=== PATIENT | female | born 1985 | race Caucasian/White ===

== ENCOUNTER 2017-09-10 15:30 | Inpatient (IN) | payer OTHER ==
[2017-09-10] MEDS ORDERED: MISOPROSTOL 200 MCG TAB PO PRN (19:18)
[2017-09-10] MEDS ORDERED: LIDOCAINE 1% 300 MG/30 ML SDV SC PRN (19:18)
[2017-09-10] MEDS ORDERED: IBUPROFEN 600 MG TAB PO PRN (19:18)
[2017-09-10] MEDS ORDERED: LR 1,000 ML IV PRN (19:18)
[2017-09-10] MEDS ORDERED: TERBUTALINE SULFATE 1 MG/ML VIAL IV PRN (19:18)
[2017-09-10] MEDS ORDERED: AMMONIA AROMATIC 1 EACH AMP IH PRN (19:18)
[2017-09-10] MEDS ORDERED: OLIVE OIL 118 ML BTL MISC PRN (19:18)
[2017-09-10] MEDS ORDERED: EPSOM SALT 454 GM TP PRN (19:18)
[2017-09-10 19:46] LABS: PLATELET COUNT 181 10^3/uL (150-400)
--- NOTE | 2017-09-10 19:47 | PDGENHP ---
History and Physical History and Physical: CARE: [facility] HPI: Patient is a 32 yo G 1 P 0 at 41 weeks ega who presented to L&D today for an NST and CYRUS. NST was reactive, CYURS was 2.3. Baby has been active, denies LOF of VB or regular contractions. Due to gestational age and low CYRUS, will admit for IOL for oligo and postdates. EDC: 09/03/2017 which is based on LMP: 11/27/16 which is known and consistent with Ultrasound at 7 weeks. Her is complicated by: -h/o migraines with aura -Rubella non-immune Review of Systems: Constitutional: Denies any fever, chills, or fatigue HEENT: denies any visual changes, difficulty swallowing, hearing loss Cardiovascular: Denies any chest pain, palpitations, leg swelling Respiratory: denies any cough, wheezing, or shortness of breathe GI: Denies any nausea, vomiting, diarrhea, constipation : denies any dysuria, urgency, frequency, vaginal bleeding Musculoskeletal: denies any muscle or bone pain Skin: denies any rashes Neuro: denies any headache, seizures, lightheadedness, dizziness, or loss of consciousness Psychiatric: denies any depression, anxiety, or SI/HI thoughts HISTORY: Previous OB history: none Past medical history: h/o migraines with aura, Rubella non - immune Past surgical history: Laparotomy with RSO at age 12 (lg cyst with torsion) Medications: PNV, iron Allergies (list reaction): PCN, sulfa (rash), trimethoprim LABS: Rh: O pos ABS: Neg Rubella: Non-immune HbsAg: NR HIV: NR VDRL: NR 1hr: 76 GC: Neg Chlamydia: Neg Pap: Normal GBS: neg Genetic screening: Innatal-neg, AFP-neg BMI: (prepreg) 21 PHYSICAL EXAM: Constitutional: WN, A&Ox3 HEENT: normocephalic atraumatic, supple Heart: RRR, no murmur Chest: CTA-B Abdomen: Soft, nontender, gravid SVE: 1/50/-2 Extremities: tr edema, negative marci's sign Neuro: grossly normal Psych: normal affect assessment: Reassuring FHTs, baseline 140 +accels, no decels, moderate variability Contractions: toco : irreg, mild Assessment: 1) 32 yo G 1 P 0 with IUP@ 41 weeks ega 2) IOL for postdates/oligo 3) GBS neg 4) Cat 1 FHR tracing 5) Rubella non-immune Plan: 1) Admit to L&D 2) Will place rivera bulb 3) Low dose pitocin overnight for cervical ripening 4) Induction in AM 5) Continuous monitoring 6) Anticipate
[2017-09-10] MEDS ORDERED: LR 500 ML IV PRN (20:02)
[2017-09-10] MEDS ORDERED: ZOLPIDEM TARTRATE 5 MG TAB PO PRN (20:03)
[2017-09-10] MEDS ORDERED: OXYTOCIN/RINGERS LACTATE 500 ML IV SCH (20:30)
[2017-09-10] MEDS ORDERED: hydrOXYzine HCL 50 MG TAB PO PRN (20:38)
[2017-09-11] MEDS ORDERED: LR 500 ML IV PRN (07:04)
[2017-09-11] MEDS ORDERED: OXYTOCIN/RINGERS LACTATE 500 ML IV SCH (07:30)
[2017-09-11] MEDS ORDERED: LIDOCAINE 1% 300 MG/30 ML SDV ONE (07:48)
[2017-09-11] MEDS ORDERED: OLIVE OIL 118 ML BTL ONE (07:49)
[2017-09-11] MEDS ORDERED: TERBUTALINE SULFATE 1 MG/ML VIAL ONE (07:49)
[2017-09-11] MEDS ORDERED: OXYTOCIN 10 UNIT/ML VIAL ONE (07:49)
[2017-09-11] MEDS ORDERED: MISOPROSTOL 200 MCG TAB ONE (07:49)
--- NOTE | 2017-09-11 12:33 | OBPROG ---
Labor Progress Note Assessment/Plan: Assessment: 32 yo @ 41 1/7 weeks for IOL secondary to oligo and postdates Plan: Pitocin was up to 18 mu/min and decreased to 10 mu/min Pt was examined, rivera bulb noted to be in vagina and was deflated and removed SVE 2-3/50/-3, intact Pt is in a lot of pain with ctx's and will get in the tub, if not tolerable requests an epidural FHTs reassuring, Cat I tracing Cont current management 09/11/17 12:33 Subjective/Intrapartum Course: 09/11/17 12:34 Pt is sitting in the chair and having a lot of pain with the ctx's, she wants to get in the tub and if pain is not any better she desires an epidural. Objective: 09/10/17 19:25 Patient ABO/Rh O POSITIVE 09/10/17 19:25 - SVE Dilation (cm): 2 (2-3) Effacement (%): 50 Station: -2 Membranes: Intact - Contraction Pattern Assessment Current Contraction Pattern: Regular (every 2-3 min) - FHR Assessment Dudley FHR (bpm): 140 FHR Pattern Variability: Moderate FHR Category: 1 - AP Antepartum Course: 09/11/17 12:36 IUP@ 41 weeks who came in for NST and CYRUS check; CYRUS was 2.3; NST reactive; IOL for oligo. GBS negative 09/11/17 12:36 Oxytocin Orders Assessment - Pre-Induction/Augmentation Assessment Indication: Oligo; unfavorble cervix Presentation: Vertex Gestational Age: 41 week(s) and 0 day(s) Gestational Age Determined By: Last Menstral Period (c/w u/s in first trimester) Estimated Weight: 2501-3400g Membrane Status: Intact Current Contraction Pattern: Regular - Heart Rate Pattern Dudley FHR Baseline (bpm): 140 FHR Category: 1 FHR Pattern Variability: Moderate FHR Accelerations: Present - Nava's Score Dilation: 1-2cm (2-3) Effacement: 40-50 (50) Station: -2 Cervix: Soft Cervix Position: Posterior Nava Score Total: 5 - Induction/Augmentation Consent Risks/Benefits of Procedure Reviewed/Pt Agrees to Proceed: Yes ICD10 Worksheet Patient Problems: Problems Problem Status Onset Oligohydramnios Acute Post-dates Acute - ICD10 Problem Qualifiers (1) Oligohydramnios (2) Post-dates
[2017-09-11] MEDS ORDERED: PHENYLEPHRINE HCL 100 MCG/ML SYR ONE (12:51)
[2017-09-11] MEDS ORDERED: BUPIVACAINE 0.25% 30 ML SDV ONE (12:51)
[2017-09-11] MEDS ORDERED: fentaNYL 100 MCG/2 ML INJ ONE (12:51)
[2017-09-11] MEDS ORDERED: PHENYLEPHRINE HCL 100 MCG/ML SYR IVP PRN (13:26)
--- NOTE | 2017-09-11 13:26 | PDANEPAE ---
ANE History of Present Illness In labor, for VAHE ANE Past Medical History - Cardiovascular History Hx Hypertension: No Hx Arrhythmias: No Hx Chest Pain: No Hx Coronary Artery / Peripheral Vascular Disease: No Hx CHF / Valvular Disease: No Hx Palpitations: No - Pulmonary History Hx COPD: No Hx Asthma/Reactive Airway Disease: No Hx Recent Upper Respiratory Infection: No Hx Oxygen in Use at Home: No Hx Sleep Apnea: No Pulmonary History Comment: RESOLVING URI - Neurologic History Hx Cerebrovascular Accident: No Hx Seizures: No Hx Dementia: No - Endocrine History Hx Diabetes: No Endocrine History Comment: LOW T-3 LEVEL LOW TAKES SUPPLEMENT - Renal History Hx Renal Disorders: No - Liver History Hx Hepatic Disorders: No - Neurological & Psychiatric Hx Hx Neurological and Psychiatric Disorders: No - Cancer History Hx Cancer: No - Congenital Disorder History Hx Congenital Disorders: No - GI History GERD: no Hx Gastrointestinal Disorders: No - Other Health History Other Health History: NEG - Chronic Pain History Chronic Pain: Yes (LT FOOT) - Surgical History Prior Surgeries: L FOOT SURG. RT S&O 1997, GOLDIE BAUTISTA Review of Systems Review of Systems: - Exercise capacity METS (RN): 4 METS ANE Patient History - Allergies Allergies/Adverse Reactions: Penicillins Allergy (Verified 06/04/15 13:31) Rash sulfamethoxazole [From Septra] Allergy (Verified 06/04/15 13:31) Rash trimethoprim [From Septra] Allergy (Verified 06/04/15 13:30) Rash - Home Medications Home Medications: Herbals/Supplements -Info Only 01/12/16 [Last Taken 01/21/16] Ibuprofen 01/12/16 [Last Taken 01/21/16] Norethindrone 01/12/16 [Last Taken 01/21/16] - Anes Hx Anes Hx: no prior problems - Smoking Hx Smoking Status: Never smoked - Family Anes Hx Family Anes Hx: none ANE Labs/Vital Signs - Labs Result Diagrams: 09/10/17 19:25 - Vital Signs Height: 165.1 cm Weight: 67.132 kg ANE Physical Exam - Airway Neck exam: FROM Mallampati Score: Class 1 Mouth exam: normal dental/mouth exam - Pulmonary Pulmonary: no respiratory distress - Cardiovascular Cardiovascular: regular rate and rhythym - ASA Status ASA Status: II, E ANE Anesthesia Plan Anesthesia Plan: epidural (For labor)
[2017-09-11] MEDS ORDERED: fentaNYL 200 MCG, BUPIVACAINE 0.5% 20 ML in NS 100 ML EP SCH (13:30)
[2017-09-11] MEDS ORDERED: fentaNYL 2MCG/ML/BUP 0.1% RTU 100 ML EP SCH (13:30)
--- NOTE | 2017-09-11 15:04 | PREANESOB ---
Obstetric Pre-Anesthesia Info - General Info Proposed Procedure: Labor Epidural : 1 Para: 0 TJ: 09/03/17 Gestational Age: 41 week(s) and 0 day(s) - Info Status: Postmature Monitors: External FHR Pattern: Reassuring - Labor Status Cervical Dilation per last OB SVE: 2 (2-3) Station per last OB SVE: -2 Pitocin: In Use PIH: No Magnesium Sulfate in Use: No Indications for Labor Analgesia: Pain Control Labor Epidural: Yes Anesthesia Allergies/Adverse Reactions: Allergy/AdvReac Type Severity Reaction Status Date / Time Penicillins Allergy Rash Verified 06/04/15 13:31 sulfamethoxazole Allergy Rash Verified 06/04/15 13:31 [From ] trimethoprim [From ] Allergy Rash Verified 06/04/15 13:30 Home Medications: Medication Instructions Recorded Herbals/Supplements -Info Only 01/12/16 Ibuprofen 01/12/16 Norethindrone 01/12/16 Visit Medications: Generic Name Dose Route Start Last Admin Trade Name Freq PRN Reason Stop Dose Admin Ammonia (Aromatic Spirit) 1 each 09/10/17 19:18 Ammonia Aromatic IH 09/20/17 19:17 ONCE PRN Fainting Hydroxyzine HCl 50 mg 09/10/17 20:38 Hydroxyzine Hcl PO 03/09/18 20:37 Q6HRS PRN Sleep/Insomnia Lactated Ringer's 1,000 mls @ 0 mls/hr 09/10/17 19:18 09/10/17 19:49 Lr IV 09/11/17 19:17 1,000 mls PRN PRN Administration SEE PROTOCOL CONDITIONS Protocol Per Protocol Lactated Ringer's 500 mls @ 500 mls/hr 09/10/17 20:02 Lr IV 09/11/17 20:02 PRN PRN Maternal Hypotension Oxytocin/Lactated Ringer's 500 mls @ 0 mls/hr 09/10/17 20:30 09/10/17 20:20 Pitocin 30 Units/Lr (Premix) IV 03/09/18 20:29 500 mls CONT TANYA Administration Protocol Per Protocol Lactated Ringer's 500 mls @ 500 mls/hr 09/11/17 07:04 Lr IV 09/12/17 07:05 PRN PRN Maternal Hypotension Oxytocin/Lactated Ringer's 500 mls @ 0 mls/hr 09/11/17 07:30 Pitocin 30 Units/Lr (Premix) IV 03/10/18 07:29 CONT [facility] Protocol Per Protocol Fentanyl 200 mcg/ Bupivacaine 100 mls @ 0 mls/hr 09/11/17 13:30 HCl 20 ml/ Sodium Chloride EP 09/21/17 13:29 CONT [facility] Protocol As Directed Ibuprofen 600 mg 09/10/17 19:18 Motrin PO ONCE PRN post , pain Lidocaine HCl 300 mg 09/10/17 19:18 Lidocaine Hcl 1% SC 03/09/18 19:17 ONCE PRN episiotomy Magnesium Sulfate 454 gm 09/10/17 19:18 Epsom Salt TP 03/09/18 19:17 Q1H PRN perineal discomfort Misoprostol 800 - 1,000 mcg 09/10/17 19:18 Cytotec PO 03/09/18 19:17 ONCE PRN Vaginal Atony/Bleeding Alvord Oil 118 ml 09/10/17 19:18 Sweet Oil MISC 03/09/18 19:17 ONCE PRN perineal massage Phenylephrine HCl 100 mcg 09/11/17 13:26 Neosynephrine IVP 03/10/18 13:25 .Q2M PRN Hypotension Terbutaline Sulfate 0.25 mg 09/10/17 19:18 Brethine IV 03/09/18 19:17 ONCE PRN Tachysystole Zolpidem Tartrate 5 mg 09/10/17 20:03 09/10/17 21:59 Ambien PO 03/09/18 20:02 5 mg HS PRN Administration Sleep/Insomnia Discontinued Medications Generic Name Dose Route Start Last Admin Trade Name Tommy PRN Reason Stop Dose Admin Bupivacaine HCl Confirm 09/11/17 12:51 Sensorcaine 0.25% Sdv Administered 09/11/17 12:52 Dose 30 ml .ROUTE .STK-MED ONE Fentanyl Confirm 09/11/17 12:51 Sublimaze Administered 09/11/17 12:52 Dose 100 mcg .ROUTE .STK-MED ONE Lidocaine HCl Confirm 09/11/17 07:48 Lidocaine Hcl 1% Administered 09/11/17 07:49 Dose 300 mg .ROUTE .STK-MED ONE Misoprostol Confirm 09/11/17 07:49 Cytotec Administered 09/11/17 07:50 Dose 1,000 mcg .ROUTE .STK-MED ONE Alvord Oil Confirm 09/11/17 07:49 Sweet Oil Administered 09/11/17 07:50 Dose 118 ml .ROUTE .STK-MED ONE Oxytocin Confirm 09/11/17 07:49 Pitocin Administered 09/11/17 07:50 Dose 40 unit .ROUTE .STK-MED ONE Phenylephrine HCl Confirm 09/11/17 12:51 Neosynephrine Administered 09/11/17 12:52 Dose 1,000 mcg .ROUTE .STK-MED ONE Terbutaline Sulfate Confirm 09/11/17 07:49 Brethine Administered 09/11/17 07:50 Dose 1 mg .ROUTE .STK-MED ONE - Vital Signs Height/Weight (Nursing): Height 165.1 cm Weight 67.132 kg Labs: 09/10/17 19:25 Patient ABO/Rh O POSITIVE 09/10/17 19:25
--- NOTE | 2017-09-11 16:25 | OBPROG ---
Labor Progress Note Assessment/Plan: Assessment: 32 yo @ 41 1/7 weeks for IOL secondary to oligo and postdates Plan: Pitocin at 10 mu/min s/p epidural, pt is comfortable SVE 5-6/100/0; AROM-very small amount of blood tinged fluid FHTs now Cat II tracing with intermittent variable decels since AROM resuscitation performed and strip reassuring Anticipate 09/11/17 16:22 Subjective/Intrapartum Course: 09/11/17 12:34 Pt is sitting in the chair and having a lot of pain with the ctx's, she wants to get in the tub and if pain is not any better she desires an epidural. 09/11/17 16:25 Pt is s/p epidural, comfortable with no complaints. Objective: 09/10/17 19:25 Patient ABO/Rh O POSITIVE 09/10/17 19:25 - SVE Dilation (cm): 5 (5-6) Effacement (%): 100 Station: 0 Membranes: AROM (very small amount) Amniotic Fluid Color: Bloody - Contraction Pattern Assessment Current Contraction Pattern: Regular (q 2-3 min) - FHR Assessment Dudley FHR (bpm): 140 FHR Pattern Variability: Moderate FHR Category: 2 (intermittent variable decels) - Procedures Non-surgical Procedures: Amniotomy - AP Antepartum Course: 09/11/17 12:36 IUP@ 41 weeks who came in for NST and CYRUS check; CYRUS was 2.3; NST reactive; IOL for oligo. GBS negative 09/11/17 12:36 - Physical Exam Estimated Weight: 2501-3400g Oxytocin Orders Assessment - Pre-Induction/Augmentation Assessment Presentation: Vertex Gestational Age: 41 week(s) and 0 day(s) Estimated Weight: 2501-3400g ICD10 Worksheet Patient Problems: Problems Problem Status Onset Oligohydramnios Acute Post-dates Acute - ICD10 Problem Qualifiers (1) Oligohydramnios (2) Post-dates
[2017-09-11] MEDS ORDERED: ONDANSETRON 4 MG/2 ML VIAL IVP PRN (21:05)
--- NOTE | 2017-09-12 00:24 | OBPROG ---
Labor Progress Note Assessment/Plan: Assessment: 32 yo @ 41 1/7 weeks for IOL secondary to oligo and postdates Plan: Pt feeling some pressure SVE-ant lip that was reduced, +2 station Will start pushing FHTs - Cat I tracing with intermittent early decels Anticipate 09/12/17 00:25 Subjective/Intrapartum Course: 09/11/17 12:34 Pt is sitting in the chair and having a lot of pain with the ctx's, she wants to get in the tub and if pain is not any better she desires an epidural. 09/11/17 16:25 Pt is s/p epidural, comfortable with no complaints. 09/12/17 00:24 Pt is starting to feel some pressure Objective: 09/10/17 19:25 Patient ABO/Rh O POSITIVE 09/10/17 19:25 - SVE Dilation (cm): 10 Effacement (%): 100 Station: +2 Membranes: AROM (very small amount) Amniotic Fluid Color: Bloody Dilation Complete Date: 09/12/17 Dilation Complete Time: 00:20 - Contraction Pattern Assessment Current Contraction Pattern: Regular (q 2-3 min) - FHR Assessment Dudley FHR (bpm): 160 FHR Pattern Variability: Moderate FHR Category: 1 (intermittent early decels) - Procedures Non-surgical Procedures: Amniotomy - AP Antepartum Course: 09/11/17 12:36 IUP@ 41 weeks who came in for NST and CYRUS check; CYRUS was 2.3; NST reactive; IOL for oligo. GBS negative 09/11/17 12:36 - Physical Exam Estimated Weight: 2501-3400g Oxytocin Orders Assessment - Pre-Induction/Augmentation Assessment Presentation: Vertex Gestational Age: 41 week(s) and 0 day(s) Estimated Weight: 2501-3400g ICD10 Worksheet Patient Problems: Problems Problem Status Onset Oligohydramnios Acute Post-dates Acute - ICD10 Problem Qualifiers (1) Oligohydramnios (2) Post-dates
[2017-09-12] MEDS ORDERED: SIMETHICONE 80 MG TAB CHEW PO PRN (02:40)
[2017-09-12] MEDS ORDERED: HYDROCORTISONE 0.5% CREAM TP PRN (02:40)
--- NOTE | 2017-09-12 02:46 | OBDEL ---
Info Type: Vaginal Presentation at Delivery: Vertex L&D Analgesia/Anesthesia Type: Epidural GBS+: No Intrapartum Medications: Generic Name Dose Route Start Last Admin Trade Name Freq PRN Reason Stop Dose Admin Oxytocin/Lactated Ringer's 500 mls @ 0 mls/hr 09/10/17 20:30 09/10/17 20:20 Pitocin 30 Units/Lr (Premix) IV 03/09/18 20:29 500 mls CONT TANYA Administration Protocol Per Protocol Fentanyl 200 mcg/ Bupivacaine 100 mls @ 0 mls/hr 09/11/17 13:30 09/11/17 21: 37 HCl 20 ml/ Sodium Chloride EP 09/21/17 13:29 100 mls CONT TANYA Administration Protocol As Directed Ondansetron HCl 4 mg 09/11/17 21:05 09/11/17 21:24 Zofran IVP 03/10/18 21:04 4 mg Q6HRS PRN Administration Nausea/Vomiting, Can't Take PO Zolpidem Tartrate 5 mg 09/10/17 20:03 09/10/17 21:59 Ambien PO 03/09/18 20:02 5 mg HS PRN Administration Sleep/Insomnia Discontinued Medications Generic Name Dose Route Start Last Admin Trade Name Freq PRN Reason Stop Dose Admin Lactated Ringer's 1,000 mls @ 0 mls/hr 09/10/17 19:18 09/10/17 19:49 Lr IV 09/11/17 19:17 1,000 mls PRN PRN Administration SEE PROTOCOL CONDITIONS Protocol Per Protocol Lactated Ringer's 500 mls @ 500 mls/hr 09/11/17 07:04 09/11/17 22:10 Lr IV 09/12/17 07:05 500 mls PRN PRN Administration Maternal Hypotension - Infant Care Provider Mail Sorter/CREW PERSON: Sofie Bowling - Hospital Course Intrapartum: 09/11/17 12:34 Pt is sitting in the chair and having a lot of pain with the ctx's, she wants to get in the tub and if pain is not any better she desires an epidural. 09/11/17 16:25 Pt is s/p epidural, comfortable with no complaints. 09/12/17 00:24 Pt is starting to feel some pressure Indications for Delivery: Oligohydramnios (IOL) Vaginal Delivery - Delivery Provider Delivery Physician/CNM: Nika Terry - Labor and Delivery Onset of Contractions Date: 09/11/17 Onset of Contractions Time: 13:11 Onset of Contractions Type: Induced Rupture of Membranes Date: 09/12/17 Rupture of Membranes Time: 16:15 Rupture of Membranes Type: Artificial Amniotic Fluid Color: Bloody Dilation Complete Date: 09/12/17 Dilation Complete Time: 00:20 Placenta Delivery Date: 09/12/17 Placenta Delivery Time: 02:05 Total Hours of Labor: 12 Non-surgical Procedures: Amniotomy Laceration: 2nd Degree, Other (Specify) (R vaginal wall laceration) Repair: 3-0, Vicryl Vaginal Sponge Count Correct: Yes Vaginal Needle Count Correct: Yes Vaginal Sweep Performed: Yes EBL: 350 cc Delivery Events: Other (Specify) (Terminal meconium noted) Delivery Comment: A viable female infant born at 0200 in [place], compound presentation over intact perineum. No nuchal cord. Terminal meconium noted. to maternal abdomen. Cord gases and cord blood was obtained. Placenta delivered spontaneously intact with 3-vc. Trailing membranes noted and removed with ring forcep. Inspection revealed 2nd degree perineal lac and R vaginal wall lac that was repaired with 3 -0 Vicryl x 2. FF below umbilicus, but some brisk bleeding noted. Pitocin given IM. Another sweep performed and more trailing membranes removed. Bleeding was then minimal. No complications. Cord Gases: Cord Gases Cord Blood PCO2 42.9 mmHg (37-60) 09/12/17 02:30 Cord Base Excess -12.0 mEq/L (-13.6--3.2) 09/12/17 02:30 Cord ABG pH 7.19 (7.10-7.37) 09/12/17 02:30 Cord VBG pH 7.22 (7.20-7.42) 09/12/17 02:30 - Medications Labor Augmentation/Induction Methods Used: Pitocin Labor Augmentation/Induction Indication: Post Dates, Other (Specify) ( Oligohydramnios) Operative Report - Delivery Cord Gases: Cord Gases Cord Blood PCO2 42.9 mmHg (37-60) 09/12/17 02:30 Cord Base Excess -12.0 mEq/L (-13.6--3.2) 09/12/17 02:30 Cord ABG pH 7.19 (7.10-7.37) 09/12/17 02:30 Cord VBG pH 7.22 (7.20-7.42) 09/12/17 02:30 [place] Data TJ: 09/03/17 Gestational Age: 41 week(s) and 2 day(s) Dudley Delivery Date: 09/12/17 Delivery Time: 02:00 Sex of Infant: Female Score (1 Min): 7 Score (5 Min): 8 ICD10 Worksheet Patient Problems: Problems Problem Status Onset Oligohydramnios Acute Post-dates Acute (spontaneous vaginal delivery) Acute - ICD10 Problem Qualifiers (1) Oligohydramnios (2) Post-dates (3) (spontaneous vaginal delivery)
[2017-09-12] MEDS: HYDROCODONE/APAP 5/325 TAB PO PRN ×2 (05:43→23:30)
--- NOTE | 2017-09-12 08:54 | POSTANESTH ---
Post Anesthetic Evaluation Cardiovascular Status: Normal, Stable Respiratory Status: Normal, Stable Level of Consciousness/Mental Status: Can Participate in Eval Pain Control: Adequate, Prn Tx Ordered Nausea/Vomiting Control: Adequate, Prn Tx Ordered Complications Possibly Related to Anesthesia: None Noted (Patient reports good labor pain control with VAHE. No residual weakness/numbness.)
[2017-09-12] MEDS: IBUPROFEN 600 MG TAB PO PRN ×3 (09:45→21:50)
[2017-09-12] MEDS: DOCUSATE SODIUM 100 MG CAP PO PRN ×2 (16:15→23:30)
--- NOTE | 2017-09-12 19:44 | OBPP ---
Progress Note Assessment/Plan: Assessment: 32 y/o PPD #1 s/p doing well Plan: support, routine PPC and likely d/c home tomorrow. 09/12/17 19:43 Subjective/ Course: 09/12/17 19:42 Pt is doing well today. She has min cramping and perineal pain controlled with Ibuprofen. She is ambulating and voiding without difficulty. Baby is doing well and breast feeding is going well. Objective: 09/10/17 19:25 Patient ABO/Rh O POSITIVE 09/10/17 19:25 Temp Pulse Resp BP Pulse Ox 35.9 C L 57 L 16 113/74 96 09/12/17 13:26 09/12/17 08:00 09/12/17 08:00 09/12/17 08:00 09/12/17 05:49 Uterine Position/Fundal Height: Umbilicus -2 Uterine Tone: Firm Physical Exam - Physical Exam General Appearance: WD/WN, alert, no apparent distress Neck: non-tender, full range of motion, supple Respiratory: chest non-tender, lungs clear, normal breath sounds Cardiac/Chest: regular rate, rhythm Abdomen: normal bowel sounds Extremities: swelling (no), Lisbeth's sign (neg)
[2017-09-13] MEDS: IBUPROFEN 600 MG TAB PO PRN ×2 (04:17→12:34)
[2017-09-13] MEDS: HYDROCODONE/APAP 5/325 TAB PO PRN (08:57)
--- NOTE | 2017-09-13 09:05 | OBGCSDC ---
General Delivery Information - General Info : 1 Para: 1 Abortions: 0 Type: Vaginal L&D Analgesia/Anesthesia Type: Epidural Admission Date: 09/10/17 Labs: Patient ABO/Rh O POSITIVE 09/10/17 19:25 Hct 36.9 % (38.0-47.0) L 09/10/17 19:25 - Hospital Course Antepartum: 09/11/17 12:36 IUP@ 41 weeks who came in for NST and CYRUS check; CYRUS was 2.3; NST reactive; IOL for oligo. GBS negative 09/11/17 12:36 Intrapartum: 09/11/17 12:34 Pt is sitting in the chair and having a lot of pain with the ctx's, she wants to get in the tub and if pain is not any better she desires an epidural. 09/11/17 16:25 Pt is s/p epidural, comfortable with no complaints. 09/12/17 00:24 Pt is starting to feel some pressure : 09/12/17 19:42 Pt is doing well today. She has min cramping and perineal pain controlled with Ibuprofen. She is ambulating and voiding without difficulty. Baby is doing well and breast feeding is going well. 09/13/17 09:04 S) Pt doing well, reports min pain and bleeding. she is ambulating and voiding without difficulty. She is . She desires discharge home today. O) VSS, afebrile constitutional: WNWF, A&Ox3 HEENT: normocephalic, atraumatic, supple Heart: RRR, No murmur Chest: CTA-B Abdomen: Soft, nontender Uterus: Firm at U-2 Lochia: Minimal rubra Perineum: Intact, healing well Extremities: Trace edema, and negative Lisbeth's sign Neuro: Grossly normal A) 32 year-old S/P PPD#1 P) Discharge home today Continue Pelvic rest x6wks Discussed danger signs (infection, preeclampsia, depression, heavy bleeding, etc) RTO in 2/4/6 weeks Vaginal - Delivery Provider Delivery Physician/CNM: Nika Terry - Diagnosis Labor: Induced Rupture of Membranes Type: Artificial Amniotic Fluid Color: Bloody Laceration: 2nd Degree, Other (Specify) (R vaginal wall laceration) Repair: 3-0, Vicryl Delivery Events: Other (Specify) (Terminal meconium noted) - Procedures Non-surgical Procedures: Amniotomy - Delivery Non-surgical Procedures: Amniotomy EBL: 350 cc Data JT: 09/03/17 Gestational Age: 41 week(s) and 3 day(s) Dudley Delivery Date: 09/12/17 Delivery Time: 02:00 Sex of Infant: Female Weight (gm): 3506 g Score (1 Min): 7 Score (5 Min): 9
[2017-09-13 09:26] VITALS: BP 106/75
[2017-09-13] MEDS: DOCUSATE SODIUM 100 MG CAP PO PRN (12:34)
== END 2017-09-13 12:00 | disposition home or self-care (01) | DRG 767 ==
LOC: FLD 15:30 → OBSVTOIN 20:11 → FOB 09-12 04:30
PROVIDERS: ADMIT Advanced Practice Midwife; ATTEND Obstetrics & Gynecology
DX: O48.0 Post-term pregnancy (principal); O41.03X0 Oligohydramnios, third trimester, not applicable or unspecified; O73.1 Retained portions of placenta and membranes, without hemorrhage; O70.1 Second degree perineal laceration during delivery; O76 Abnormality in fetal heart rate and rhythm complicating labor and delivery; O77.0 Labor and delivery complicated by meconium in amniotic fluid; Z3A.40 40 weeks gestation of pregnancy; Z37.0 Single live birth
CPT/HCPCS: J2370; J2405; J2590; J3010; J3105